=== PATIENT | male | born 1965 | race Caucasian/White ===

== ENCOUNTER 2020-04-22 11:59 | Emergency (ER) | payer SELFPAY ==
[~2020-04-22] VITALS: Ht 180.3 cm; Wt 115.0 kg
[2020-04-22] MEDS ORDERED: SODIUM CHLORIDE 0.9% 1,000ML IVBOLUS ONE (12:30)
[2020-04-22] MEDS ORDERED: HYDROmorphone 1 MG/ML, 1ML INJ ONE (12:37)
[2020-04-22 12:46] VITALS: BP 162/78
--- NOTE | 2020-04-22 12:49 | NUR ---
BIBA FROM WORK FOR [employer] MOTOR FALLING OFF OF 3Funnel SLIDING DOWN STOMACH AND HITTING RIGHT LEG. NOTED BRUISNG, ABRASIONS, AND REDNESS ON ABDOMEN AND RIGHT LEG. PT RECEIVED 5MG VERSED, 30MG KETAMINE, AND 4 MG ZOFRAN IV. PT STILL CONTINUES TO STATE PAIN IN RIGHT LEG. PT DENIES LOC AND INJURY TO HEAD AND NECK. PEDAL PULSES OBSERVED IN RIGHT LEG WELL SENSATION. AT BEDSIDE AWAITING TRANSPORT TO [facility].
[2020-04-22] MEDS ORDERED: HYDROmorphone 1 MG/ML, 1ML INJ IV ONE (13:00)
[2020-04-22] MEDS ORDERED: ONDANSETRON 2MG/ML, 2ML IVPush ONE (13:00)
== END 2020-04-22 13:50 ==
LOC: ED 13:39
DX: R07.9 Chest pain, unspecified (principal); R10.9 Unspecified abdominal pain; M79.651 Pain in right thigh; M79.604 Pain in right leg; E78.5 Hyperlipidemia, unspecified; Z88.0 Allergy status to penicillin; X58.XXXA Exposure to other specified factors, initial encounter; Y93.89 Activity, other specified; Y92.098 Other place in other non-institutional residence as the place of occurrence of the external cause; Y99.8 Other external cause status
CPT/HCPCS: 93005; 96361; 96374; 99283; J1170; J7030